=== PATIENT | male | born 1935 | race Caucasian/White ===

== ENCOUNTER 2016-12-18 10:11 | Inpatient (IN) | payer MEDICARE, BC ==
--- NOTE | 2016-11-19 12:00 | NUR ---
PMH, allergies, meds reviewed and documented. Preop and DOS instructions given including handouts of medications to stop before surgery, shower instructions and Hibiclens soap, letter from Dr Medley, ortho consent, Surgical Services pamphlet, and my contact information.
--- NOTE | 2016-11-19 14:24 | NUR ---
Pacemaker Information Med[employer]onic-[employer] ARCEO Pacemaker Model # [id number] Serial # [id number] Implanted 07-19-14 Dr Yo Gardiner at [phone] [employer]
--- NOTE | 2016-11-27 14:00 | NUR ---
JOINT REPLACEMENT PREOP CLASS PATIENT ATTENDED JOINT REPLACEMENT PREOP CLASS. CASE MANAGEMENT CONTACT INFORMATION PROVIDED. EDUCATION WAS PROVIDED REGARDING WHAT TO EXPECT BEFORE, DURING AND AFTER SURGERY. INCLUDING: OVERVIEW OF ANATOMY AND PHYSIOLOGY HOSPITAL TREATMENT SCHEDULE THERAPY DEMONSTRATION CASE MANAGEMENT RESPONSIBILITIES DISCHARGE PLANNING EQUIPMENT NEEDS JOINT REPLACEMENT WORKBOOK ANTI-COAGULATION SURGERY STRONG NUTRITIONAL PROTOCOL DISCHARGE INSTRUCTIONS [facility] PATIENT PORTAL, WITH INSTRUCTIONS CJR AND PREOP SURVERY PREOP BATHING- CHG GIVEN ALL PATIENT'S QUESTIONS ANSWERED TO THEIR SATISFACTION. PATIENTS AND COACHES ENCOURAGED TO CALL WITH ANY ADDITIONAL QUESTIONS OR CONCERNS. CM FOLLOWING FOR TRANSITIONAL CARE PLANNING NEEDS DURING HOSPITALIZATION.
[2016-12-18] VITALS (27 sets, daily range): BP systolic 84–160; BP diastolic 50–77; PULSE 60–82; RESP 14–22; TEMP 96.3–97.7; O2SAT 92–100; Ht 182.9 cm; Wt 80.5 kg
[~2016-12-18] VITALS: Ht 182.9 cm; Wt 80.5 kg
[~2016-12-18 10:11] MED LIST: ACETAMINOPHEN 500 MG TABLET PO ONE; AMIO200T2 PO; ASCO-324 PO; ASPI-914 PO; CLINDAMYCIN 900mg IVPB 50 ML IV ONE; DEXAMETHASONE 4mg/ml - 1ml INJECTION IV ONE; DOCU240C40 PO; FAMOTIDINE 20mg IVPB 50 ML IV ONE; FLUT9.9S EA NOSTRIL; IBUP-1724 PO; LEVO100T12 PO; LIDOCAINE 1% (10mg/ml) 2ml SDV ID ONE; LORA10TA7 PO; METO25TA6 PO; METOCLOPRAMIDE 10mg/2ml INJECTION IV ONE; MIRT30TA6 PO; NORMAL SALINE 1,000 ML IV PRN; NOZIN NASAL SWAB NS ONE; OMEG-34 PO; OMEP20CA10 PO; ONDANSETRON 4mg/2ml INJECTION IV ONE; PRAV40TA3 PO; TAMS0.4C47 PO
--- OUTSIDE RECORDS SUMMARY | 2016-12-18 10:16 | XMS REPORT | Continuity of Care Document ---
Demographics Preferred Language Unknown Marital Status Unknown Jewish Affiliation Unknown Race Unknown Ethnic Group Unknown Author Author [facility] Organization [facility] Address Unknown Phone Unavailable Allergies Medications Problems Procedures Results Encounters ACCT No. Visit Date/Time Discharge Status Pt. Type Provider Facility Loc./Unit Complaint [id number] 11/08/2016 15:11:00 ACT Unknown [id number] 08/17/2014 08:28:00 ACT Unknown [id number] 08/06/2014 09:49:00 ACT Unknown [id number] 07/14/2013 10:13:00 ACT Unknown
--- OUTSIDE RECORDS SUMMARY | 2016-12-18 10:16 | XMS REPORT | CCD ---
Author Author NATALIA LEWIS Organization Unknown Address [address] [place] [phone] Phone 0 Care Team Providers Care Fruit Farmworker Name Role Phone SOPHIA MIMS Attending Physician [phone] Vital Signs Unknown or Not Available. Allergies Allergy Code Allergy Type Reaction Status PCN (penicillin) 0 Drug allergy Active SULFA (sulfonamide) 0 Drug allergy Active Procedures Unknown or Not Available. History of Immunizations Unknown or Not Available. Problems Unknown or Not Available. Results Unknown or Not Available. Active Medications Unknown or Not Available. Medications Administered During Visit Unknown or Not Available. Encounters Unknown or Not Available. Social History Smoking Status Code Start Date End Date Former smoker [id number] Patient Decision Aids Unknown or Not Available. Discharge Instructions You were admitted to [facility] on 11/02/2016 14:10 You were discharged from [facility] on 11/02/2016 14:10 Should you have any questions prior to discharge, please contact a member of your healthcare team. If you have left the hospital and have any questions, please contact your primary care physician. Chief Complaint and Reason For Visit Chief Complaint Date of Onset XR HIP Function Status Unknown or Not Available. Plan of Care Unknown or Not Available. Referral/Transition of Care Unknown or Not Available.
--- OUTSIDE RECORDS SUMMARY | 2016-12-18 10:16 | XMS REPORT | CCD ---
Author MAINE Worley Organization Unknown Address [address] [place] [address] [phone] Phone 0 Care Team Providers Care Alteration Workroom Supervisor Name Role Phone LEONA STANFORD Attending Physician 0 Vital Signs Unknown or Not Available. Allergies Allergy Code Allergy Type Reaction Status PCN (penicillin) 0 Drug allergy Active SULFA (sulfonamide) 0 Drug allergy Active Procedures Unknown or Not Available. History of Immunizations Unknown or Not Available. Problems Unknown or Not Available. Results COMP METABOLIC - Collect Date/Time: 08/10/2014 11:05 Test Name Code Test Result Test Units Test Ref Range GLUCOSE 104 mg/dL L=70 H=110 BUN 33 mg/dL L=7 H=18 CREATININE 2.10 mg/ dL L=0.60 H=1.30 AGE 79 YEARS GFR 32.4 SODIUM 143 mmol/L L=136 H=145 POTASSIUM 4.9 mmol/ L L=3.5 H=5.1 CHLORIDE 107 mmol/L L=98 H=107 CO2 28 mmol/L L=21 H=32 CALCIUM 9.2 mg/dL L=8.5 H=10.1 AST 15 U/L L=15 H=37 ALT 24 U/L L=12 H=78 ALKALINE PHOS 85 U/ L L=46 H=116 TOTAL PROTEIN 7.7 g/ dL L=6.4 H=8.2 ALBUMIN 4.0 g/dL L=3.4 H=5.0 TOTAL BILI 0.60 mg/ dL L=0.00 H=1.00 PRO B-TYPE NATRIURETIC PEPTIDE - Collect Date/Time: 08/10/2014 11:05 Test Name Code Test Result Test Units Test Ref Range PBNP 101 pg/mL L=0 H=450 CBC (HEMOGRAM ONLY) - Collect Date/Time: 08/10/2014 11:05 Test Name Code Test Result Test Units Test Ref Range WBC 7.9 x10^3 L=4.8 H=10.8 RBC 4.18 x10^6 L=4.70 H=6.10 HEMOGLOBIN 13.1 g/ dL L=14.0 H=18.0 HEMATOCRIT 39.7 % L=42.0 H=52.0 MCV 95 fL L=80 H=100 MCH 31.4 pg L=27.0 H=33.0 MCHC 33.1 g/dL L=33.0 H=37.0 RDW 12.5 % L=11.5 H=14.5 PLATELETS 181 x10^3 L=150 H=450 MPV 9.3 fL L=7.8 H=11.0 Medications Unknown or Not Available. Medications Administered Unknown or Not Available. Encounters Unknown or Not Available. Social History Smoking Status Code Start Date End Date Former smoker [id number] Patient Decision Aids Unknown or Not Available. Discharge Instructions You were admitted to [facility] on 08/10/2014. You were discharged from [facility] AND [facility] on 08/10/2014. Should you have any questions prior to discharge, please contact a member of your healthcare team. If you have left the hospital and have any questions, please contact your primary care physician. Chief Complaint and Reason For Visit Chief Complaint Date of Onset LAB Function Status Unknown or Not Available. Plan of Care Unknown or Not Available. Referral/Transition of Care Unknown or Not Available.
--- OUTSIDE RECORDS SUMMARY | 2016-12-18 10:16 | XMS REPORT | CCD ---
Author Author ANGELINA RUIZ Organization Unknown Address [address], [place] [phone] Phone 0 Care Team Providers Care Dealership General Manager Name Role Phone MEI VALVERDE, W Attending Physician [phone] Vital Signs Unknown. Allergies Unknown. Procedures Unknown. History of Immunizations Unknown. Problems Unknown. Results Unknown. Medications Unknown. Medications Administered Unknown. Encounters Unknown. Social History Smoking Status Code Start Date End Date Former smoker [id number] Patient Decision Aids Unknown. Instructions You were admitted to [facility] on 07/10/2013. You were discharged from [facility] on 07/10/2013. Should you have any questions prior to discharge, please contact a member of your healthcare team. If you have left the hospital and have any questions, please contact your primary care physician. Chief Complaint and Reason For Visit Chief Complaint Date of Onset CT SINUSES Function Status Unknown. Plan of Care Unknown.
--- OUTSIDE RECORDS SUMMARY | 2016-12-18 10:16 | XMS REPORT | CCD ---
Author MAINE Worley Organization Unknown Address [address] [place] [phone] Phone 0 Care Team Providers Care Emission Specialist Name Role Phone RAEGAN, A Attending Physician 0 RAEGAN, A Primary Surgeon 0 Vital Signs Unknown or Not Available. Allergies Allergy Code Allergy Type Reaction Status PCN (penicillin) 0 Drug allergy Active SULFA (sulfonamide) 0 Drug allergy Active Procedures Unknown or Not Available. History of Immunizations Unknown or Not Available. Problems Unknown or Not Available. Results CARDIAC PANEL - Collect Date/Time: 07/17/2014 10:20 Test Name Code Test Result Test Units Test Ref Range CKMB 1.2 ng/mL L=0.0 H=3.6 CPK 98 U/L L=26 H=308 CKMB% 1.2 % L=0.0 H=4.0 TROPONIN I <0.02 ng/ mL L=0.00 H=0.05 COMP METABOLIC - Collect Date/Time: 07/17/2014 10:20 Test Name Code Test Result Test Units Test Ref Range GLUCOSE 108 mg/dL L=70 H=110 BUN 54 mg/dL L=7 H=18 CREATININE 2.40 mg/ dL L=0.60 H=1.30 AGE 79 YEARS GFR 27.8 SODIUM 142 mmol/L L=136 H=145 POTASSIUM 4.4 mmol/ L L=3.5 H=5.1 CHLORIDE 108 mmol/L L=98 H=107 CO2 23 mmol/L L=21 H=32 CALCIUM 8.5 mg/dL L=8.5 H=10.1 AST 18 U/L L=15 H=37 ALT 43 U/L L=12 H=78 ALKALINE PHOS 69 U/ L L=46 H=116 TOTAL PROTEIN 6.9 g/ dL L=6.4 H=8.2 ALBUMIN 3.5 g/dL L=3.4 H=5.0 TOTAL BILI 0.60 mg/ dL L=0.00 H=1.00 PRO B-TYPE NATRIURETIC PEPTIDE - Collect Date/Time: 07/17/2014 10:20 Test Name Code Test Result Test Units Test Ref Range PBNP 6869 pg/mL L=0 H=450 CBC W/ DIFF - Collect Date/Time: 07/17/2014 10:20 Test Name Code Test Result Test Units Test Ref Range WBC 9.0 x10^3 L=4.8 H=10.8 RBC 4.00 x10^6 L=4.70 H=6.10 HEMOGLOBIN 13.2 g/ dL L=14.0 H=18.0 HEMATOCRIT 37.8 % L=42.0 H=52.0 MCV 95 fL L=80 H=100 MCH 32.9 pg L=27.0 H=33.0 MCHC 34.8 g/dL L=33.0 H=37.0 RDW 12.2 % L=11.5 H=14.5 PLATELETS 138 x10^3 L=150 H=450 MPV 11.6 fL L=7.8 H=11.0 NEUTROPHILS 82.8 % L=40.0 H=80.0 LYMPHOCYTES 9.9 % L=20.0 H=45.0 MONOCYTES 5.5 % L=0.0 H=10.0 EOSINOPHILS 1.8 % L=0.0 H=5.0 BASOPHILS 0.0 % L=0.0 H=2.0 SEG 79 %% L=40 H=80 BAND 1 %% L=0 H=5 LYMPH 9 %% L=20 H=45 MONO 8 %% L=0 H=10 EOS 2 %% L=0 H=5 BASO 1 %% L=0 H=2 ATYP LYMPH 0 %% L=0 H=10 META 0 %% L=0 H=1 REFLEX MAN DIFF YES N/A RBC MORPHOLOGY NORMAL N/A Medications Medication Code Dose Units Frequency Route Modification Start Date/Time Stop Date/ Time Pravastatin Sodium 20MG Oral Tablet 796165 20 MILLIGRAMS DAILY ORAL Fish Oil 1000MG Oral Capsule, Liquid Filled 892548 8789 MILLIGRAMS DAILY ORAL Vitamin C 500MG Oral Tablet 130322 500 MILLIGRAMS DAILY ORAL Glucosamine & Chondroitin 400MG-500MG Oral Capsule 506091 1 EACH DAILY ORAL Aspirin 81MG Oral Tablet 381729 81 MILLIGRAMS DAILY ORAL Synthroid 0.05MG Oral Tablet 558350 0.05 MILLIGRAMS DAILY ORAL Omeprazole 20MG Oral Capsule, Delayed Release 811857 20 MILLIGRAMS DAILY ORAL Lisinopril 20MG Oral Tablet 294125 20 MILLIGRAMS DAILY ORAL Propranolol HCl 40MG Oral Tablet 539280 40 MILLIGRAMS DAILY ORAL Tamsulosin Hydrochloride 0.4MG Oral Capsule 401927 0.4 MILLIGRAMS DAILY ORAL Medications Administered Unknown or Not Available. Encounters Unknown or Not Available. Social History Smoking Status Code Start Date End Date Former smoker [id number] Patient Decision Aids Unknown or Not Available. Discharge Instructions You were admitted to [facility] on 07/17/2014. You were discharged from [facility] on 07/17/2014. Should you have any questions prior to discharge, please contact a member of your healthcare team. If you have left the hospital and have any questions, please contact your primary care physician. Chief Complaint and Reason For Visit Unknown or Not Available. Function Status Unknown or Not Available. Plan of Care Unknown or Not Available. Referral/Transition of Care Unknown or Not Available.
--- NOTE | 2016-12-18 10:52 | NUR ---
CM CM ATTEMPTED VISIT. PT IS AT PROCEDURE. NO FAMILY IS PRESENT IN THE ROOM. CM CONTACT INFORMATION IS LEFT AT THE BEDSIDE.
[2016-12-18 11:24] LABS: BASOPHILS # (AUTO) 0.1 T/MM3 (0-0.2); EOSINOPHILS # (AUTO) 0.2 T/MM3 (0-0.5); EOSINOPHILS % (AUTO) 2.2 % (0-4); HCT - HEMATOCRIT 40.4 % (41-53); HGB - HEMOGLOBIN 13.1 GM/DL (13.5-17.5); IMMATURE GRANULOCYTE # (AUTO) 0.03 T/MM3 (0.00-0.03); IMMATURE GRANULOCYTE % (AUTO) 0.4 % (0.0-0.5); LYMPHOCYTES # (AUTO) 1.5 T/MM3 (1-4.8); LYMPHOCYTES % (AUTO) 22.8 % (23-45); MEAN CORPUSCULAR HGB 31.5 UUG (26-34); MEAN CORPUSCULAR HGB CONC(MCHC 32.4 GM/DL (31-37); MEAN CORPUSCULAR VOLUME 97.1 UM3 (80-100); MEAN PLATELET VOLUME 12.1 UM3 (9.4-12.4); MONOCYTES # (AUTO) 0.6 T/MM3 (0-0.8); MONOCYTES % (AUTO) 9.3 % (0-9.0); NEUTROPHILS #(AUTO)-ABSOLUTE 4.3 T/MM3 (1.8-7.7); NEUTROPHILS % (AUTO) 64.3 % (33-66); RED BLOOD COUNT 4.16 M/MM3 (4.50-5.90); WBC - WHITE BLOOD COUNT 6.7 T/MM3 (4.5-11.0)
--- NOTE | 2016-12-18 11:24 | ANESPREOP ---
Anesthesia Record Date and Time DATE: 12/18/16 TIME: 11:22 Pre-Op Diagnosis right hip degeneration Proposed Surgical Procedure RT LAURA NPO since: midnight Allergies: Coded Allergies: Penicillins (Verified Allergy, Unknown, ANAPHYLAXIS, 12/18/16) Sulfa (Sulfonamide Antibiotics) (Verified Allergy, Unknown, RASH, 12/18/16) Ht/Wt/BMI Height: 6 ' 0.00 " Weight: 80.200 kg BMI: 24.0 kg/m2 Vital Signs Date Time Temp Pulse Resp B/P Pulse Ox O2 Delivery O2 Flow Rate FiO2 12/18/16 10:46 97.7 82 14 160/77 96 Room Air Medications Inpatient Medications Current Medications Medications (Trade) Dose Ordered Sig/Ariana Start Time Stop Time Status Last Admin Dose Admin Sodium Chloride (Normal Saline IV) 1,000 ml @ 50 mls/hr Q20H PRN 12/18/16 07:00 Amiodarone HCl (Amiodarone HCl) 200 Mg Tablet, 100 MG PO DAILY, (Reported) Last Taken: on 12/18/16 0800 Ascorbate Calcium (Vitamin C) 500 Mg Tablet, 1 TAB PO DAILY, (Reported) Last Taken: on 12/17/16 0800 Aspirin *EC* (Low Dose Aspirin EC) 81 Mg Tablet.dr, 1 TAB PO DAILY, (Reported) Last Taken: on 12/11/16 Docusate Calcium (Stool Softener) 240 Mg Capsule, 1 CAP PO BID, (Reported) Last Taken: on 12/17/162129 Fluticasone Propionate (Flonase Allergy Relief 50 mcg/actuation Nasal) 9.9 Ml [place].susp, 1 SPRAY EA NOSTRIL BID, (Reported) Last Taken: on 12/11/16 Ibuprofen (Ibuprofen) 200 Mg Tablet, 2 TAB PO Q4H PRN for PAIN, (Reported) Last Taken: on 12/13/16 Levothyroxine Sodium (Levothyroxine Sodium) 100 Mcg Tablet, 1 TAB PO ACB, (Reported) Once daily before breakfast Last Taken: on 12/17/16 0800 Loratadine (Loratadine) 10 Mg Tablet, 10 MG PO ACB, (Reported) Take 1 tablet, by mouth, one time a day (before breakfast). Last Taken: on 12/17/16 0800 Metoprolol Tartrate (Metoprolol Tartrate) 25 Mg Tablet, 25 MG PO BIDWM, (Reported) Take 1 tab, by mouth, two time a day with meals. Last Taken: on 12/18/16 0800 Mirtazapine (Mirtazapine) 30 Mg Tablet, 30 MG PO HS, (Reported) Take 1 tablet, by mouth, one time a day (at bedtime). Last Taken: on 12/17/162129 Murray-3S/Dha/Epa/Fish Oil (Fish Oil 1,200 mg Softgel) 1 Each Capsule, 1,200 MG PO DAILY, (Reported) Last Taken: on 12/13/16 Omeprazole (Omeprazole) 20 Mg Capsule.dr, 20 MG PO ACB, (Reported) Take 1 capsule, by mouth, one time a day (before breakfast). Last Taken: on 12/18/16 0800 Pravastatin Sodium (Pravastatin Sodium) 40 Mg Tablet, 20 MG PO HS, (Reported) Take 1 tablet, by mouth, daily at bedtime. Last Taken: on 12/17/162129 Tamsulosin HCl (Tamsulosin HCl) 0.4 Mg Cap.er.24h, 0.4 MG PO HS, (Reported) Take 1 capsule, by mouth, 1 time a day (at BEDTIME). Last Taken: on 12/17/162129 Currently on Beta Braydon: No Medical/Surgical History Anesthesia PMH: Reports: *Hypertension, Cardiac Arrythmia (Hx of A fib), Hyperlipidemia, Pacemaker, Reflux, Renal Disease (PER H&P), Sleep Apnea, Thyroid Disease (SUBCLINICAL HYPERTHYROIDISM PER H&P), Denies: Anesthesia Reactions, Cancer, Glaucoma, Malignant Hyperthermia Smoking Status: Former smoker Has pt. smoked today?: No Use Chewing Tobacco?: No Second Hand Exposure: No Substance Use Type: does not use Alcohol Intake: none Past Surgical History Orthopedic Surgeries: Yes - LT RCR Abdominal Surgeries: Yes - APPY Genitourinary Surgeries: Cardiac Surgeries: Endocrine Surgeries: Reproductive Surgeries: Neurological Surgeries: Ear Surgeries: Nose Surgeries: Throat Surgeries: Other Surgeries: Yes - COLONOSCOPY Anesthesia Adverse Reactions: FOUND none Family Hx of Anesthesia Advers: none Hx of Motion Sickness: No Pertinent Findings EKG Rhythm: Sinus Rhythm, Paced Physical Exam Respiratory: Lungs clear Cardiovascular: FOUND Regular rate, rhythm, FOUND Pacemaker Airway Assessment Mallampati Score: II TMD: 3 Fingerbreadths Neck Extension: Fair Overall Assessment: May Be Diff Intubation ASA: 3 Plan Regional: Spinal Discussion Discussed risks/options/alternatives of anesthesia and questions answered. Patient consents. Nursing pain assessment noted. Present: Family Member Attestation Statement Prior to the delivery of any anesthetic medication, I examined the patient, developed the plan, obtained the patient's consent and discussed the risk and benefits of the procedure with the patient/guardian. LATOYA ROBLES RN PRIVATE DUTY Dec 18, 2016 11:24
[2016-12-18 11:35] LABS: ALBUMIN 3.9 G/DL (3.5-5.0); ALBUMIN/GLOBULIN RATIO 1.1 RATIO (1.1-2.2); ALKALINE PHOSPHATASE 91 U/L (38-126); ALT (SGPT) 34 U/L (21-72); ANION GAP 8 MEQ/L (5-15); AST (SGOT) 24 U/L (17-59); BUN/CREATININE RATIO 20 RATIO (6-26); CALCIUM 9.6 MG/DL (8.4-10.2); CHLORIDE 109 MEQ/L (98-107); CO2 - CARBON DIOXIDE 27 MEQ/L (22-30); CREATININE 1.7 MG/DL (0.8-1.5); GLOMERULAR FILTRATION RATE 39; GLUCOSE 94 MG/DL (75-110); POTASSIUM 4.6 MEQ/L (3.6-5); SODIUM 144 MEQ/L (134-144); TOTAL PROTEIN 7.3 G/DL (6.3-8.2)
[2016-12-18] MEDS ORDERED: VANCOMYCIN 1 GRAM INJECTION ONE (12:01)
[2016-12-18] MEDS ORDERED: MIDAZOLAM 2mg/2ml INJECTION ONE (12:16)
[2016-12-18] MEDS ORDERED: PROPOFOL 500mg 50 ML IV ONE (12:17)
[2016-12-18] MEDS ORDERED: EPHEDRINE SULFATE 50mg/ml INJECTION ONE (12:33)
[2016-12-18] MEDS ORDERED: PROPOFOL 200mg 20 ML IV ONE (13:46)
--- NOTE | 2016-12-18 14:05 | PDOPERATE ---
Operative Report Date of Operation 12/18/16 Side: Right Preoperative Diagnosis: hip primary DJD Postoperative Diagnosis Same as preoperative diagnosis. Operation/Procedure: total hip arthroplasty (right) Surgeon Nydia Medley MD Heel Varnisher EUGENIO Abdul Complications None. Regional Block: Spinal Estimated Blood Loss See Anesthesia Record. Fluids Please See Anesthesia Record. Description of Operation Mr. Foreman and his right hip were identified and marked in the the preoperative holding area. He was then brought back to the operating suite and proper anesthesia was administered. He was then positioned lateral on the operating table. The right lower extremity was then prepped and draped in my normal sterile fashion. Timeout was performed with all operating room personnel. A posterior approach was utilized. Approximately 11 cm incision was made in the skin and dissection carried down to the muscle fascia which was then split in line with skin incision. Charnley retractor was placed and the short external rotators were identified and tagged and detached. Capsulotomy was performed and the hip dislocated. A femoral neck osteotomy was performed approximately 1 cm proximal to the lesser trochanter. The head was removed and acetabulum exposed. Labrum was removed and sequentially reamed to a size 57 and placed a 58 cup in 20 of anteversion. A liner was then placed. The proximal femur was exposed and prepared with a cookie cutter followed by reaming and broaching to a size 10. We trialed the standard head this gave excellent stability and good leg length. After thorough irrigation a final Secure Fit Max size 10 stem with 132 neck was placed. We again trialed this time with a -2.5 head and this again gave excellent stability and good leg length. A final 36 mm -2-1/2 metal head was placed and the hip reduced. Betadine solution was allowed to sit in the wound for 3 minutes and fully irrigated out with normal saline. Joint cocktail was injected throughout soft tissue. The capsulotomy was repaired with Ethibond. Short external rotators were also repaired with Ethibond. 1 g of TXA was placed into the hip joint allowed to sit for 5 minutes. 1 g of vancomycin powder was placed into the wound. The muscle fascia was then repaired with #1 Vicryl. I then left my system to close the subcutaneous tissue with 2-0 Vicryl followed by running 4-0 Monocryl skin followed by Dermabond and a sterile dressing. The patient with any placed back into supine position and taken to recovery room in the care of anesthesia. IVETT MEDLEY MD Dec 18, 2016 14:04
[2016-12-18] MEDS ORDERED: METOCLOPRAMIDE 10mg/2ml INJECTION IV PRN (14:15)
[2016-12-18] MEDS ORDERED: SENNOSIDES 8.6 MG TABLET PO PRN (14:15)
[2016-12-18] MEDS ORDERED: LORAZEPAM 1 MG TABLET PO PRN (14:15)
[2016-12-18] MEDS ORDERED: PRN ORDERS MC (14:15)
[2016-12-18] MEDS ORDERED: NOZIN NASAL SWAB NS ONE (14:15)
[2016-12-18] MEDS ORDERED: TRAMADOL 50 MG TABLET PO PRN (14:15)
[2016-12-18] MEDS ORDERED: ONDANSETRON 4mg/2ml INJECTION IV PRN (14:15)
[2016-12-18] MEDS ORDERED: DiphenhydrAMINE 50 MG/ML INJECTION IV PRN (14:15)
[2016-12-18] MEDS ORDERED: DiphenhydrAMINE 25 MG CAPSULE PO PRN (14:15)
[2016-12-18] MEDS ORDERED: TRANEXAMIC ACID 1000 MG/10 ML TOP ONE (14:30)
[2016-12-18] MEDS: NORMAL SALINE 1,000 ML IV SCH (14:49)
--- NOTE | 2016-12-18 14:51 | ANESPO ---
Post-Op Note Date 12/18/16 Time: 14:45 Status Pt Participated in Evaluation: Pt participated in person Vital Signs Date Time Temp Pulse Resp B/P Pulse Ox O2 Delivery O2 Flow Rate FiO2 12/18/16 14:20 97.0 61 16 89/52 100 Mask 6.00 Respiratory Function: Airway patent Cardiovascular Function: Regular pulse Mental Status: Alert/oriented Pain Level Intensity: 0 Unable to Assess Pain Due To: pre-op order Hydration: IV infusing Complications during Recovery None apparent Follow-Up Instructions Instructions Per Surgeon LIBBY RILEY CRNA Dec 18, 2016 14:51
--- NOTE | 2016-12-18 15:08 | DI ---
Indication: ITS.REASON: post right hip replacement PROCEDURE: PELVIS W/1 VIEW RT HIP: Encounter: Initial Comparison: None Findings: Postoperative changes of right total hip replacement are seen. There is expected postoperative subcutaneous gas. No evidence of hardware failure or acute fracture. No retained radiopaque surgical instruments or sponges seen. Impression: New right total hip prosthesis without evidence of immediate complication. .
[2016-12-18] MEDS ORDERED: EPINEPHRINE 0.25 MG, BUPIVACAINE 0.25% 75 MG, MORPHINE SULFATE 15 MG in NORMAL SALINE 3... INJ ONE (15:30)
--- NOTE | 2016-12-18 15:30 | NUR ---
ADMISSION PT TO ROOM 123 PER CART. TRANSFERRED WITH ASSIST OF 2 WITH SLIDE BOARD. PT UNABLE TO FEEL FEET, HAS SOME FEELING AT ANKLES. PT DENIES PAIN. DENIES SOA. ON RA, TOLERATING WELL. VS STABLE. PT IN BED WITH ALARM. CALL LIGHT WITHIN REACH. WILL CONTINUE TO MONITOR.
[2016-12-18] MEDS: ACETAMINOPHEN 325 MG TABLET PO SCH ×2 (17:55→20:36)
--- NOTE | 2016-12-18 18:47 | NUR ---
STATUS PT A/O X3. UP WITH ASSIST OF ONE WITH WALKER AND GAIT BELT. PT STATES PAIN IS RATED 4/10 AND "REALLY ISN'T BAD". VS STABLE. PT ON RA, TOLERATING WELL. HAS NOT VOIDED POST OP. TOLERATING REGULAR DIET WELL. PT UP IN CHAIR WITH ALARM. CALL LIGHT WITHIN REACH. WILL CONTINUE TO MONITOR.
[2016-12-18] MEDS: CLINDAMYCIN 900mg IVPB 50 ML IV SCH (18:58)
[2016-12-18] MEDS: ASPIRIN *EC* 325mg TABLET PO SCH (20:36)
[2016-12-18] MEDS: DOCUSATE CALCIUM 240 MG CAPSULE PO SCH (20:38)
[2016-12-18] MEDS: FLUTICASONE NASAL SPRAY 50 MCG EA NOSTRIL SCH (20:47)
[2016-12-18] MEDS: NOZIN NASAL SWAB NS SCH (20:47)
[2016-12-18] MEDS ORDERED: MIRTAZAPINE 30 MG TABLET PO SCH (22:00)
[2016-12-18] MEDS ORDERED: SENNOSIDES 8.6 MG TABLET PO SCH (22:00)
[2016-12-18] MEDS ORDERED: TAMSULOSIN 0.4 MG CAPSULE PO SCH (22:00)
[2016-12-18] MEDS ORDERED: PRAVASTATIN 20 MG TABLET PO SCH (22:00)
[2016-12-19] VITALS: BP 105/69; PULSE 62; RESP 16; TEMP 97.8; O2SAT 95
[2016-12-19] MEDS: CLINDAMYCIN 900mg IVPB 50 ML IV SCH ×2 (00:41→06:58)
[2016-12-19] MEDS: NORMAL SALINE 1,000 ML IV SCH (03:06)
[2016-12-19 03:58] VITALS: BP 106/60; PULSE 62; RESP 16; TEMP 98.2; O2SAT 94
--- NOTE | 2016-12-19 05:40 | NUR ---
Summary Pt has been AOx3, stayed the night in the recliner at bedside. Pt has rated pain at a 4 most of the night. When pain was 6/10 pt requested 50mg Ultram. Pt stated "I don't like to take more pain medicine than I have to". Pt was up and walked the weller before bed. Pt ambulated well with fww and gb.\\
[2016-12-19 06:23] LABS: HCT - HEMATOCRIT 34.4 % (41-53); HGB - HEMOGLOBIN 11.1 GM/DL (13.5-17.5); MEAN CORPUSCULAR HGB 31.2 UUG (26-34); MEAN CORPUSCULAR HGB CONC(MCHC 32.3 GM/DL (31-37); MEAN CORPUSCULAR VOLUME 96.6 UM3 (80-100); MEAN PLATELET VOLUME 12.4 UM3 (9.4-12.4); RED BLOOD COUNT 3.56 M/MM3 (4.50-5.90); WBC - WHITE BLOOD COUNT 14.2 T/MM3 (4.5-11.0)
[2016-12-19] MEDS: NOZIN NASAL SWAB NS SCH ×2 (06:23→13:43)
[2016-12-19] MEDS ORDERED: LEVOTHYROXINE 100 MCG TABLET PO SCH (06:30)
[2016-12-19] MEDS ORDERED: OMEPRAZOLE 20 MG CAPSULE PO SCH (06:30)
[2016-12-19] MEDS ORDERED: LORATADINE 10 MG TABLET PO SCH (06:30)
[2016-12-19 06:34] LABS: ANION GAP 11 MEQ/L (5-15); BUN/CREATININE RATIO 22 RATIO (6-26); CALCIUM 8.4 MG/DL (8.4-10.2); CHLORIDE 112 MEQ/L (98-107); CO2 - CARBON DIOXIDE 20 MEQ/L (22-30); CREATININE 1.8 MG/DL (0.8-1.5); GLOMERULAR FILTRATION RATE 36; GLUCOSE 134 MG/DL (75-110); POTASSIUM 5.1 MEQ/L (3.6-5); SODIUM 143 MEQ/L (134-144)
[2016-12-19] MEDS: FLUTICASONE NASAL SPRAY 50 MCG EA NOSTRIL SCH (08:40)
[2016-12-19] MEDS: DOCUSATE CALCIUM 240 MG CAPSULE PO SCH (08:41)
--- NOTE | 2016-12-19 08:48 | PDORTHOPN ---
Subjective Date DATE: 12/19/16 TIME: 08:32 Subjective Mr Foreman is doing very well. His pain is controlled. They have had trouble getting IV access on him. No CP or breathing issues. He has been mobile with good tolerance. Objective Vital Signs Vital signs Vital Signs 12/18/16 12/19/16 12/19/16 22:04 00:00 03:58 Temp 97.8 98.2 Pulse 73 62 62 Resp 16 16 16 B/P 112/65 105/69 106/60 Pulse Ox 93 95 94 O2 Delivery Room Air Room Air Room Air Height (Feet): 6 Height (Inches): 0.00 Weight (Kilograms): 80.500 General General Appearance: No Acute Distress Respiratory (Brief) Respiratory Brief: FOUND: non-labored Cardiovascular (Brief) Cardiac: FOUND: calf easily compressible, calf soft, nontender, pedal pulses intact Surgical Site Incision: FOUND: Mepilex dressing intact, no drainage Neurologic (Brief) Neurological Brief: FOUND: extremities w/o deficits, neuro intact Psychiatric (Brief) Psychiatric Brief: FOUND: alert, no acute distress Laboratory Laboratory Laboratory Tests 12/18/16 11:04 12/19/16 06:02 Laboratory Tests 12/18/16 11:04 12/19/16 06:02 Assessment & Plan Problems: (1) Degenerative arthritis of hip Status: Chronic Assessment & Plan: x S/P LAURA 12/18 Resume aspirin SCDs, early mobilization, (2) Chronic kidney disease (CKD) Status: Chronic Assessment & Plan: Mr Foreman is about at his baseline with renal function. His pre op creat was 2.0 His K+ is just up a little at 5.1 His BPs were a little low overnight ( 80s-90s / 50s) We will avoid use of NSAIDs. I will give him a bolus and then run IV fluids at 100cc / hr. Recheck labs this afternoon. If labs and BPs improve, he could possibly go home but I might want to watch him overnight and recheck labs in the AM. (3) Atrial fibrillation Status: Chronic Assessment & Plan: HR and rhy is stable this AM. Resume meds. Monitor. Hospital Course Summary Disclaimer The visit summary below is not to be considered part of the above Progress Note. SATURNINO GAGE Dec 19, 2016 08:36
[2016-12-19] MEDS ORDERED: NORMAL SALINE 500 ML IV ONE (09:00)
[2016-12-19] MEDS ORDERED: OMEGA-3 ACID ESTERS 1 G CAPSULE PO SCH (09:00)
[2016-12-19] MEDS ORDERED: POLYETHYL.GLYCOL 3350 PACKET 17gm PO SCH (09:00)
[2016-12-19] MEDS ORDERED: ASCORBIC ACID 500 MG TABLET PO SCH (09:00)
[2016-12-19] MEDS ORDERED: AMIODARONE 200 MG TABLET PO SCH (09:00)
[2016-12-19] MEDS: ASPIRIN *EC* 325mg TABLET PO SCH (09:03)
[2016-12-19] MEDS: ACETAMINOPHEN 325 MG TABLET PO SCH ×2 (09:04→13:37)
[2016-12-19 10:49] VITALS: PULSE 90; RESP 20
[2016-12-19] MEDS ORDERED: NORMAL SALINE 1,000 ML IV SCH (11:00)
--- NOTE | 2016-12-19 11:03 | NUR ---
CM THIS WORKER MET WITH PT AT THIS TIME. PT SITTING ON SIDE OF THE BED AND AT BEDSIDE. THIS WORKER REVIEWED DISCHARGE PLAN. PT PLANNING TO RETURN HOME WITH . DENIED ANY NEEDS AT THIS TIME. HIP KIT PROVIDED TO PT. PT HAS FWW. WILL COMPLETE PHYSICAL THERAPY IN [place] (APPOINTMENT TIME IS 12/21/16 AT 9AM). PT WAS GIVEN THIS WORKER'S CONTACT INFORMATION AND ENCOURAGED TO CONTACT THIS WORKER WITH ANY NEEDS.
[2016-12-19 12:00] VITALS: BP 127/64; PULSE 61; RESP 18; TEMP 96.5; O2SAT 95
[2016-12-19] MEDS ORDERED: ASPI-917 PO (13:46)
[2016-12-19] MEDS ORDERED: TRAM50TA53 PO (13:46)
[2016-12-19] MEDS ORDERED: POLY17PO18 PO (13:46)
--- NOTE | 2016-12-19 14:51 | NUR ---
Pt A/O x3. Speech is clear, able to voice needs, cooperative with cares. Educated on medications this am. Verbalizes understanding, needs reinforcement. Lung chanel CTA, respirations even, unlabored. VS WNL. No s/s of distress. Normoactive BS x4 quads, abd soft. Able to feed self. Up with assist x1, gait belt, FWW. Ice pack to right hip as needed. New Iv side left hand, patent
--- NOTE | 2016-12-19 15:00 | NUR ---
ASSUMED PT CARE THIS RN ASSUMED PT CARE AT THIS TIME. PT ALERT AND ORIENTED X3. VITAL SIGNS STABLE, ON RA. WILL CONTINUE TO MONITOR.
[2016-12-19 15:45] VITALS: PULSE 61; RESP 18
[2016-12-19 16:23] LABS: HCT - HEMATOCRIT 33.1 % (41-53); HGB - HEMOGLOBIN 10.6 GM/DL (13.5-17.5); MEAN CORPUSCULAR HGB 31.3 UUG (26-34); MEAN CORPUSCULAR VOLUME 97.6 UM3 (80-100); MEAN PLATELET VOLUME 12.7 UM3 (9.4-12.4); RED BLOOD COUNT 3.39 M/MM3 (4.50-5.90); WBC - WHITE BLOOD COUNT 16.3 T/MM3 (4.5-11.0)
[2016-12-19 16:35] LABS: ANION GAP 10 MEQ/L (5-15); BUN/CREATININE RATIO 21 RATIO (6-26); CALCIUM 8.6 MG/DL (8.4-10.2); CHLORIDE 113 MEQ/L (98-107); CO2 - CARBON DIOXIDE 22 MEQ/L (22-30); CREATININE 1.9 MG/DL (0.8-1.5); GLOMERULAR FILTRATION RATE 34; GLUCOSE 124 MG/DL (75-110); POTASSIUM 4.7 MEQ/L (3.6-5); SODIUM 145 MEQ/L (134-144)
--- NOTE | 2016-12-19 16:51 | DSPDOC ---
General Date Date DATE: 12/19/16 TIME: 16:45 Attending Physician Everardo Medley MD Admitting Physician Everardo Medley MD Consulting Physician Admitting Diagnosis PRIMARY DEGENERATIVE JOINT DISEASE RIGHT HIP Discharge Diagnosis Primary DJD right hip Procedures Right total hip arthroplasty History of Present Illness HPI Elements This patient was admitted for elective surgical tx of end stage degenerative joint disease that failed to respond to conservative treatment. Further details of this is found in the admission H&P. Hospital Course After appropriate preoperative clearance and signing of operative consent, the patient was given IV antibiotics, according to orthopedic protocol. The patient was taken to the operating room and underwent elective right total hip arthroplasty. Following surgery, antibiotics were discontinued less than 24 hours according to joint protocol. Aspirin was initiated and SCDs added for DVT prevention. The dressing was clean, dry, and intact. Pain control was obtained via multimodal approach. Bowel motivation addressed with scheduled and PRN medications. His BP was a little low the night of surgery with ranges from 80-90 systolic and diastolic readings in the 50's. His Creat was 1.7 the day of surgery and increased to 1.9 by discharge, however, his baseline is about 2.0 and his GFR was actually better than his pre op levels. I did give him some additional IV NS for his low BPs and renal status. His K+ was normal by discharge. Early mobilization was initiated through PT services. Discharge arrangements made by a collaborative effort between the patient and Case Management. Follow-up is scheduled in 2-3 weeks. Discharge instructions given by orthopedic providers and nursing staff at discharge. Discharge condition was good. Pt was asked to see his PCP in 1 week to f/u on his renal function and general post op eval for his other medical problems. Problems: (1) Degenerative arthritis of hip Status: Chronic Assessment & Plan: x S/P LAURA 12/18 Resume aspirin SCDs, early mobilization, (2) Chronic kidney disease (CKD) Status: Chronic Assessment & Plan: Mr Foreman is about at his baseline with renal function. His pre op creat was 2.0 His K+ is just up a little at 5.1 but was back to normal at discharge. His BPs were a little low overnight ( 80s-90s / 50s) Improved to 120/60s at discharge. We will avoid use of NSAIDs. I will give him a bolus and then run IV fluids at 100cc / hr. Recheck labs this afternoon. If labs and BPs improve, he could possibly go home. (3) Atrial fibrillation Status: Chronic Assessment & Plan: HR and rhy is stable this AM. Resume meds. Monitor. Ongoing Care Required?: No Laboratory Laboratory Tests Test 12/19/16 06:02 12/19/16 15:58 White Blood Count 14.2T/MM3 16.3T/MM3 Red Blood Count 3.56M/MM3 3.39M/MM3 Hemoglobin 11.1GM/DL 10.6GM/DL Hematocrit 34.4% 33.1% Mean Corpuscular Volume 96.6UM3 97.6UM3 Mean Corpuscular Hemoglobin 31.2UUG 31.3UUG Mean Corpuscular Hemoglobin Concent 32.3GM/DL 32.0GM/DL RDW Standard Deviation 40.7FL 41.0FL Platelet Count 163T/MM3 149T/MM3 Mean Platelet Volume 12.4UM3 12.7UM3 Turbidity < 20 < 20 Sodium Level 143MEQ/L 145MEQ/L Potassium Level 5.1MEQ/L 4.7MEQ/L Chloride Level 112MEQ/L 113MEQ/L Carbon Dioxide Level 20MEQ/L 22MEQ/L Anion Gap 11MEQ/L 10MEQ/L Blood Urea Nitrogen 39.0MG/DL 39.0MG/DL Creatinine 1.8MG/DL 1.9MG/DL Glomerular Filtration Rate Calc 36 34 BUN/Creatinine Ratio 22RATIO 21RATIO Glucose Level 134MG/DL 124MG/DL Calculated Osmolality 286MOSM/KG 289MOSM/KG Calcium Level 8.4MG/DL 8.6MG/DL Icterus Index < 2 < 2 Chemistry Specimen Hemolysis < 15 < 15 Immature Granulocyte % (Auto) % Neutrophils (%) (Auto) % Lymphocytes (%) (Auto) % Monocytes (%) (Auto) % Eosinophils (%) (Auto) % Basophils (%) (Auto) % Absolute Immature Granulocyte (auto T/MM3 Absolute Neutrophils (auto) T/MM3 Absolute Lymphocytes (auto) T/MM3 Absolute Monocytes (auto) T/MM3 Absolute Eosinophils (auto) T/MM3 Absolute Basophils (auto) T/MM3 Home Meds Active Scripts Polyethylene Glycol 3350 (Healthylax) 17 Gm Powd.pack, 17 G PO DAILY, #30 PACKET Prov:ILZZ MACIEL 12/19/16 Tramadol HCl (Ultram) 50 Mg Tablet, 50-100 MG PO Q4H Y for PAIN, #60 TAB Prov:LIZZ MACIEL 12/19/16 Aspirin *EC* (Aspirin EC) 325 Mg Tablet.dr, 325 MG PO BID, #84 TAB Prov:LIZZ MACIEL 12/19/16 Reported Medications Loratadine (Loratadine) 10 Mg Tablet, 10 MG PO ACB, TAB Take 1 tablet, by mouth, one time a day (before breakfast). 11/19/16 Fluticasone Propionate (Flonase Allergy Relief 50 mcg/actuation Nasal) 9.9 Ml [place].susp, 1 SPRAY EA NOSTRIL BID 11/19/16 Metoprolol Tartrate (Metoprolol Tartrate) 25 Mg Tablet, 25 MG PO BIDWM, TAB Take 1 tab, by mouth, two time a day with meals. 11/19/16 Levothyroxine Sodium (Levothyroxine Sodium) 100 Mcg Tablet, 1 TAB PO ACB, TAB Once daily before breakfast 11/19/16 Mirtazapine (Mirtazapine) 30 Mg Tablet, 30 MG PO HS, TAB Take 1 tablet, by mouth, one time a day (at bedtime). 11/19/16 Amiodarone HCl (Amiodarone HCl) 200 Mg Tablet, 100 MG PO DAILY, TAB 11/19/16 [place]-3S/Dha/Epa/Fish Oil (Fish Oil 1,200 mg Softgel) 1 Each Capsule, 1200 MG PO DAILY, CAP 11/19/16 Ascorbate Calcium (Vitamin C) 500 Mg Tablet, 1 TAB PO DAILY, TAB 11/19/16 Docusate Calcium (Stool Softener) 240 Mg Capsule, 1 CAP PO BID, CAP 11/19/16 Pravastatin Sodium (Pravastatin Sodium) 40 Mg Tablet, 20 MG PO HS, TAB Take 1 tablet, by mouth, daily at bedtime. 11/19/16 Omeprazole (Omeprazole) 20 Mg Capsule.dr, 20 MG PO ACB, CAP Take 1 capsule, by mouth, one time a day (before breakfast). 11/19/16 Tamsulosin HCl (Tamsulosin HCl) 0.4 Mg Cap.er.24h, 0.4 MG PO HS, CAP Take 1 capsule, by mouth, 1 time a day (at BEDTIME). 11/19/16 Discontinued Reported Medications Ibuprofen (Ibuprofen) 200 Mg Tablet, 2 TAB PO Q4H Y for PAIN, TAB 12/17/16 Aspirin *EC* (Low Dose Aspirin EC) 81 Mg Tablet., 1 TAB PO DAILY, TAB 11/19/16 Discharge Disposition Please refer to Case Management Notes for patient's disposition. Estimated Blood Loss 100.0 SATURNINO GAGE Dec 19, 2016 16:49
[2016-12-19 16:56] LABS: EOSINOPHILS # (MANUAL) 0.2 T/MM3 (0-0.5); LYMPHOCYTES # (MANUAL) 0.7 T/MM3 (1-4.8); MONOCYTES # (MANUAL) 1.5 T/MM3 (0-0.8); TOTAL CELLS COUNTED 100 %
--- NOTE | 2016-12-19 18:05 | NUR ---
DISCHARGE NURSING NOTE PT WAS DISCHARGED FROM THE HOSPITAL AT THIS TIME, VIA WHEELCHAIR, ACCOMPANIED BY . PT ALERT AND ORIENTED X3. VITAL SIGNS STABLE ON RA. THIS RN WENT OVER DISCHARGE PAPERWORK WITH THE PT AND HIS INCLUDING DISCHARGE DIET, ACTIVITY, MEDICATIONS, FOLLOW-UP APPOINTMENTS AND INCISION CARE. PT VERBALIZED UNDERSTANDING. PT WAS GIVEN ORIGINALS OF THREE PRESCRIPTIONS. IV SITE TO THE LEFT HAND WAS DISCONTINUED BY THIS RN, IV STARTED BY ANOTHER RN, IV START NOT DOCUMENTED. CATHETER FROM THE LEFT HAND IV SITE INTACT. PT BELONGINGS SENT WITH, ID BAND REMOVED. NO CONCERNS NOTED AT TIME OF DISCHARGE.
[2016-12-20] MEDS ORDERED: MILK OF MAGNESIA 30 ML SUSP PO SCH (08:00)
[2016-12-20] MEDS ORDERED: BISACODYL 10 MG SUPPOSITORY RECTALLY SCH (20:00)
== END 2016-12-19 18:05 | disposition home or self-care (01) | DRG 470 ==
LOC: SRG 10:11
PROVIDERS: ADMIT Orthopaedic Surgery; ATTEND Orthopaedic Surgery
PROC: 0SR902A Replacement of Right Hip Joint with Metal on Polyethylene Synthetic Substitute, Uncemented, Open Approach (ICD-10-PCS; principal; 2016-12-18 12:58)
DX: M16.11 Unilateral primary osteoarthritis, right hip (principal); I48.2 Chronic atrial fibrillation; I12.9 Hypertensive chronic kidney disease with stage 1 through stage 4 chronic kidney disease, or unspecified chronic kidney disease; N18.1 Chronic kidney disease, stage 1; K21.9 Gastro-esophageal reflux disease without esophagitis; E78.5 Hyperlipidemia, unspecified; E05.90 Thyrotoxicosis, unspecified without thyrotoxic crisis or storm; J30.9 Allergic rhinitis, unspecified; Z95.0 Presence of cardiac pacemaker; Z87.891 Personal history of nicotine dependence
CPT/HCPCS: 36415; 80048; 80053; 85025; 85027